=== PATIENT | male | born 1950 | race African-American/Black ===

== ENCOUNTER 2016-08-22 05:43 | Emergency (ER) | payer MEDICARE, MEDICAID ==
[~2016-08-22] VITALS: Ht 182.9 cm; Wt 72.0 kg
[~2016-08-22 05:43] MED LIST: ALBUTEROL; DILT120C88 PO; Metoprolol Tartrate PO; P50 PO; RIVA20TA PO
[2016-08-22 05:47] VITALS: BP 133/84
[2016-08-22] MEDS ORDERED: SODIUM CHLORIDE 0.9% 1,000 ML IV ONE (06:16)
[2016-08-22] MEDS ORDERED: METHYLPREDNISOLONE SOD SUCC 125 MG/2 ML VIAL IV STA (06:16)
[2016-08-22] MEDS ORDERED: IPRATROPIUM/ALBUTEROL 0.5-3(2.5)MG/3ML NEB HHN ONE (06:30)
[2016-08-22] MEDS ORDERED: ASPIRIN 81MG TABLET PO ONE (06:30)
== END 2016-08-22 07:21 | disposition left against medical advice (07) ==
LOC: ER 06:30
DX: R06.02 Shortness of breath (principal); J45.909 Unspecified asthma, uncomplicated; I10 Essential (primary) hypertension; Z79.899 Other long term (current) drug therapy
CPT/HCPCS: 71010; 93005; 99284; J7030; J7620

== ENCOUNTER 2016-12-09 02:17 | Emergency (ER) | payer MEDICARE, MEDICAID ==
[~2016-12-09] VITALS: Ht 182.9 cm; Wt 91.0 kg
[2016-12-09] MEDS ORDERED: ALBUTEROL (0.083%) 2.5MG/3ML NEB HHN STA (02:31)
[2016-12-09] MEDS ORDERED: KETOROLAC 30MG/ML VIAL IV STA (02:31)
[2016-12-09] MEDS ORDERED: IPRATROPIUM BROMIDE (0.02%) 0.5MG/2.5ML NEB HHN STA (02:31)
[2016-12-09] MEDS ORDERED: METHYLPREDNISOLONE SOD SUCC 125 MG/2 ML VIAL IV STA (02:31)
[2016-12-09] MEDS ORDERED: ASPIRIN 81MG TABLET PO ONE (02:45)
[2016-12-09] MEDS ORDERED: CEFTRIAXONE 1 G PREMIX 50 ML IV ONE (02:45)
[2016-12-09] MEDS ORDERED: AZITHROMYCIN 500 MG in DEXT 5% WATER 250 ML IV ONE (02:45)
[2016-12-09] MEDS ORDERED: MAGNESIUM 2 G PREMIX 50 ML IV ONE (02:45)
[2016-12-09] MEDS ORDERED: NITROGLYCERIN OINT 1GM/INCH UDPKT TD ONE (02:45)
[2016-12-09 02:54] LABS: BG BASE EXCESS 5.2 mmol/L (-2.0-2.0); BG BILEVEL POS AIRWAY PRESSURE 15/5; BG CARBOXYHEMOGLOBIN 2.3 % (0.5-1.5); BG DEOXYHEMOGLOBIN 1.4 % (0.0-5.0); BG FRACTION INSPIRED OXYGEN 40; BG HCO3 ACT 32.7 mmol/L (22.0-26.0); BG METHEMOGLOBIN 0.4 % (0.0-1.5); BG OXYGEN SATURATION 98.6 % (92.0-98.5); BG OXYHEMOGLOBIN 95.9 % (94.0-97.0); BG PCO2 61.2 mmHg (35.0-45.0); BG PH 7.346 (7.350-7.450); BG PO2 140.8 mmHg (75.0-100.0); BG SAMPLE SITE RIGHT RADIAL; BG TOTAL HEMOGLOBIN 13.8 g/dL (12.0-18.0); BG VENT MODE MASK - BIPAP
[2016-12-09 03:02] LABS: HEMATOCRIT. 39.7 % (42.0-52.0); MEAN CORPUSCULAR HEMOGLOBIN 29.1 pg (28.0-32.0); MEAN CORPUSCULAR VOLUME 88.9 fL (80.0-94.0); MEAN PLATELET VOLUME 8.5 fl (7.4-10.4); PLATELET 171 x1000/uL (130-400); RED BLOOD CELL COUNT 4.46 mill/uL (4.7-6.1); RED CELL DISTRIBUTION WIDTH 14.8 % (11.6-14.6)
[2016-12-09 03:03] LABS: INR 1.1; PROTHROMBIN TIME 11.7 sec (9.4-11.6)
[2016-12-09 03:13] LABS: CARBON DIOXIDE 34 mEq/L (21-32); CHLORIDE 98 mEq/L (98-107)
[2016-12-09 03:14] LABS: ETHANOL BLOOD < 10 mg/dL; TROPONIN I 0.05 ng/mL (0.00-0.04)
[2016-12-09 03:58] LABS: CLARITY URINE CLEAR (CLEAR); COLOR URINE YELLOW (YELLOW); GLUCOSE URINE NEGATIVE (NEGATIVE); KETONES URINE NEGATIVE (NEGATIVE); LEUKOCYTE ESTERASE URINE NEGATIVE (NEGATIVE); NITRITE URINE NEGATIVE (NEGATIVE); OCCULT BLOOD URINE NEGATIVE (NEGATIVE); PH URINE 5.5 (4.5-8.0); PROTEIN URINE TRACE (NEGATIVE); SPECIFIC GRAVITY URINE 1.019 (1.005-1.030)
[2016-12-09 04:10] LABS: *AMPHETAMINES SCREEN URINE NEGATIVE (NEGATIVE); *BARBITURATES SCREEN URINE NEGATIVE (NEGATIVE); *BENZODIAZEPINES SCREEN URINE NEGATIVE (NEGATIVE); *COCAINE SCREEN URINE NEGATIVE (NEGATIVE); CANNABINOID URINE SCREEN PRESUMTIVE POSITIVE (NEGATIVE); METHADONE URINE SCREEN NEGATIVE (NEGATIVE); OPIATES URINE SCREEN PRESUMTIVE POSITIVE (NEGATIVE); PHENCYCLIDINE URINE SCREEN NEGATIVE (NEGATIVE)
[2016-12-09 06:10] VITALS: BP 125/76
[2016-12-09 07:39] LABS: PLATELET ESTIMATE NORMAL
== END 2016-12-09 06:10 | disposition home or self-care (01) ==
LOC: ER 02:17
DX: J44.1 Chronic obstructive pulmonary disease with (acute) exacerbation (principal); R06.89 Other abnormalities of breathing; I50.9 Heart failure, unspecified; I48.91 Unspecified atrial fibrillation; R00.0 Tachycardia, unspecified; Z79.01 Long term (current) use of anticoagulants
CPT/HCPCS: 36415; 36600; 71010; 80053; 80305; 81001; 82375; 82805; 83605; 83690; 83880; 84484; 85025; 85610; 87040; 87086; 93005; 94640; 94660; 96365; 96366; 96368; 96375; 99285; G0482; J0456; J0696; J1885; J2930; J3475; J7611; J7060

== ENCOUNTER 2017-01-26 02:41 | Inpatient (IN) | payer MEDICARE, MEDICAID ==
[~2017-01-26] VITALS: Ht 175.3 cm; Wt 86.6 kg
[2017-01-26] MEDS ORDERED: ALBUTEROL (0.083%) 2.5MG/3ML NEB HHN STA (02:59)
[2017-01-26] MEDS ORDERED: IPRATROPIUM BROMIDE (0.02%) 0.5MG/2.5ML NEB HHN STA (02:59)
[2017-01-26] MEDS ORDERED: METHYLPREDNISOLONE SOD SUCC 125 MG/2 ML VIAL IV STA (02:59)
[2017-01-26] MEDS ORDERED: SODIUM CHLORIDE 0.9% 1,000 ML IV ONE (02:59)
[2017-01-26] MEDS ORDERED: LEVOFLOXACIN 250MG TABLET PO ONE (03:00)
[2017-01-26] MEDS ORDERED: MAGNESIUM 2 G PREMIX 50 ML IV ONE (03:00)
[2017-01-26] MEDS ORDERED: ASPIRIN 81MG TABLET PO ONE (03:00)
[2017-01-26] MEDS ORDERED: NITROGLYCERIN OINT 1GM/INCH UDPKT TD ONE (03:00)
[2017-01-26 04:03] LABS: BASOPHILS % 0.3 % (0.0-2.0); EOSINOPHILS % 0.7 % (0.0-5.0); HEMATOCRIT. 37.6 % (42.0-52.0); HEMOGLOBIN. 12.1 g/dL (14.0-18.0); LYMPHOCYTES % 30.3 % (20.0-50.0); MEAN CORPUSCULAR HEMOGLOBIN 29.5 pg (28.0-32.0); MEAN CORPUSCULAR VOLUME 91.3 fL (80.0-94.0); MEAN PLATELET VOLUME 9.1 fl (7.4-10.4); NEUTROPHILS % 59.7 % (40.0-76.0); PLATELET 127 x1000/uL (130-400); RED BLOOD CELL COUNT 4.12 mill/uL (4.7-6.1); RED CELL DISTRIBUTION WIDTH 15.4 % (11.6-14.6)
[2017-01-26 04:06] LABS: BG BASE EXCESS 5.1 mmol/L (-2.0-2.0); BG CARBOXYHEMOGLOBIN 2.5 % (0.5-1.5); BG DEOXYHEMOGLOBIN 3.5 % (0.0-5.0); BG FRACTION INSPIRED OXYGEN 28; BG HCO3 ACT 33.8 mmol/L (22.0-26.0); BG METHEMOGLOBIN 0.4 % (0.0-1.5); BG OXYGEN SATURATION 96.4 % (92.0-98.5); BG OXYHEMOGLOBIN 93.6 % (94.0-97.0); BG PCO2 70.2 mmHg (35.0-45.0); BG PO2 90.9 mmHg (75.0-100.0); BG SAMPLE SITE RIGHT RADIAL; BG TOTAL HEMOGLOBIN 13.4 g/dL (12.0-18.0); BG VENT MODE NASAL CANNULA
[2017-01-26 04:18] LABS: D-DIMER 3.17 mg/L FEU (<0.50); INR 1.2; PARTIAL THROMBOPLASTIN TIME 24.1 sec (23.4-31.0); PROTHROMBIN TIME 12.7 sec (9.4-11.6)
[2017-01-26 04:24] LABS: CARBON DIOXIDE 33 mEq/L (21-32); CHLORIDE 103 mEq/L (98-107); ETHANOL BLOOD < 10 mg/dL; TROPONIN I 0.06 ng/mL (0.00-0.04)
[2017-01-26] MEDS ORDERED: SODIUM CHLORIDE 0.9% 1,000 ML IV NR (05:45)
[2017-01-26 06:04] LABS: CLARITY URINE CLEAR (CLEAR); COLOR URINE YELLOW (YELLOW); GLUCOSE URINE NEGATIVE (NEGATIVE); KETONES URINE NEGATIVE (NEGATIVE); LEUKOCYTE ESTERASE URINE NEGATIVE (NEGATIVE); NITRITE URINE NEGATIVE (NEGATIVE); OCCULT BLOOD URINE NEGATIVE (NEGATIVE); PROTEIN URINE 2+ (NEGATIVE); SPECIFIC GRAVITY URINE 1.025 (1.005-1.030); UROBILINOGEN URINE 0.2 E.U./dL (0.2-1.0)
[2017-01-26 06:20] LABS: *AMPHETAMINES SCREEN URINE NEGATIVE (NEGATIVE); *BARBITURATES SCREEN URINE NEGATIVE (NEGATIVE); *BENZODIAZEPINES SCREEN URINE NEGATIVE (NEGATIVE); *COCAINE SCREEN URINE NEGATIVE (NEGATIVE); CANNABINOID URINE SCREEN PRESUMTIVE POSITIVE (NEGATIVE); METHADONE URINE SCREEN NEGATIVE (NEGATIVE); OPIATES URINE SCREEN PRESUMTIVE POSITIVE (NEGATIVE); PHENCYCLIDINE URINE SCREEN NEGATIVE (NEGATIVE)
[2017-01-26] MEDS ORDERED: IOHEXOL-350 100 ML BOTTLE ONE (06:42)
[2017-01-26 09:02] VITALS: BP 131/96
[2017-01-26 09:13] VITALS: BP 131/96
[2017-01-26] MEDS ORDERED: ACETAMINOPHEN 650MG/20.3ML UDC GT PRN (10:45)
[2017-01-26] MEDS ORDERED: CLONIDINE 0.1MG TABLET PO PRN (10:45)
[2017-01-26] MEDS ORDERED: ONDANSETRON HCL 4MG/2ML VIAL IV PRN (10:45)
[2017-01-26] MEDS ORDERED: ACETAMINOPHEN 325MG TABLET PO PRN (10:45)
[2017-01-26] MEDS ORDERED: DIPHENHYDRAMINE 50MG/ML VIAL IV PRN (10:45)
[2017-01-26] MEDS ORDERED: HYDROCODONE/ACETAMINOPHEN 5/325MG TABLET PO PRN (10:45)
[2017-01-26] MEDS ORDERED: ACETAMINOPHEN 650MG SUPP PR PRN (10:45)
[2017-01-26] MEDS ORDERED: NA PHOS,M-B/NA PHOS,DI-BA ENEMA 118ML PR PRN (10:45)
[2017-01-26] MEDS ORDERED: IPRATROPIUM/ALBUTEROL 0.5-3(2.5)MG/3ML NEB INH PRN (10:45)
[2017-01-26] MEDS ORDERED: DOCUSATE SODIUM 100MG CAPSULE PO PRN (10:45)
[2017-01-26] MEDS ORDERED: GUAIFENESIN 200MG/10ML SUGAR FREE UDC PO PRN (10:45)
[2017-01-26] MEDS ORDERED: MAGNESIUM/ALUMINUM HYDROXIDE/SIMETHICONE 30ML UDC PO PRN (10:45)
[2017-01-26] MEDS: METHYLPREDNISOLONE SOD SUCC 125 MG/2 ML VIAL IV SCH ×3 (11:18→23:32)
[2017-01-26 12:00] VITALS: BP 123/90
[2017-01-26] MEDS: IPRATROPIUM/ALBUTEROL 0.5-3(2.5)MG/3ML NEB INH SCH ×2 (13:08→21:15)
[2017-01-26] MEDS: SODIUM CHLORIDE 0.9% INJ 3ML FLUSH IVF SCH ×2 (14:26→21:27)
[2017-01-26 14:54] LABS: CARBON DIOXIDE 31 mEq/L (21-32); CHLORIDE 102 mEq/L (98-107)
[2017-01-26] MEDS ORDERED: APIXABAN 5 MG TABLET PO SCH (15:00)
[2017-01-26] MEDS: HYDROCODONE/ACETAMINOPHEN 10/325MG TABLET PO PRN ×2 (15:07→23:33)
[2017-01-26 16:00] VITALS: BP 133/89
[2017-01-26] MEDS ORDERED: DILTIAZEM HCL 120MG CAPSULE CD 24HR PO SCH (19:00)
[2017-01-26 20:00] VITALS: BP 121/81
[2017-01-26] MEDS ORDERED: APIX5TAB PO ×2 (20:47→21:00)
[2017-01-26] MEDS ORDERED: P20 PO (20:57)
[2017-01-26] MEDS ORDERED: LISI10TA5 PO (20:58)
[2017-01-26] MEDS ORDERED: FOLI-43 PO (20:58)
[2017-01-26] MEDS ORDERED: METO25TA6 PO (20:59)
[2017-01-27] VITALS: BP 119/91
[2017-01-27] MEDS ORDERED: METHYLPREDNISOLONE SOD SUCC 125 MG/2 ML VIAL IV SCH (00:10)
[2017-01-27 04:00] VITALS: BP 120/81
[2017-01-27] MEDS: METHYLPREDNISOLONE SOD SUCC 125 MG/2 ML VIAL IV SCH ×2 (06:14→12:20)
[2017-01-27] MEDS: SODIUM CHLORIDE 0.9% INJ 3ML FLUSH IVF SCH (06:15)
[2017-01-27 07:42] LABS: HEMATOCRIT. 37.4 % (42.0-52.0); HEMOGLOBIN. 12.2 g/dL (14.0-18.0); MEAN CORPUSCULAR HEMOGLOBIN 29.5 pg (28.0-32.0); MEAN CORPUSCULAR VOLUME 90.9 fL (80.0-94.0); MEAN PLATELET VOLUME 10.1 fl (7.4-10.4); PLATELET 135 x1000/uL (130-400); RED BLOOD CELL COUNT 4.11 mill/uL (4.7-6.1); RED CELL DISTRIBUTION WIDTH 15.6 % (11.6-14.6)
[2017-01-27 07:55] VITALS: BP 125/85
[2017-01-27] MEDS: HYDROCODONE/ACETAMINOPHEN 10/325MG TABLET PO PRN (08:08)
[2017-01-27] MEDS: IPRATROPIUM/ALBUTEROL 0.5-3(2.5)MG/3ML NEB INH SCH ×2 (08:33→12:23)
[2017-01-27 08:56] LABS: CARBON DIOXIDE 33 mEq/L (21-32); CHLORIDE 101 mEq/L (98-107); HDL CHOLESTEROL 49 mg/dL (40-59); LDL CHOLESTEROL 93 mg/dL (5-100)
[2017-01-27] MEDS ORDERED: FOLIC ACID 1MG TABLET PO SCH (09:00)
[2017-01-27] MEDS ORDERED: APIXABAN 5 MG TABLET PO SCH ×2 (09:00)
[2017-01-27] MEDS ORDERED: METOPROLOL TARTRATE 25MG TABLET PO SCH (09:00)
[2017-01-27] MEDS ORDERED: LISINOPRIL 10MG TABLET PO SCH (09:00)
[2017-01-27 10:55] LABS: PLATELET ESTIMATE NORMAL
[2017-01-27] MEDS ORDERED: MAGNESIUM CITRATE 300ML SOLUTION PO NR (11:15)
[2017-01-27] MEDS ORDERED: APIX5TAB PO (11:17)
[2017-01-27 12:00] VITALS: BP 121/78
[2017-01-27 13:19] VITALS: BP 121/78
[2017-01-27] MEDS ORDERED: RIVAROXABAN 20 MG TABLET PO SCH (17:00)
[2017-01-28] MEDS ORDERED: FURO20TA4 PO (23:36)
[2017-01-28] MEDS ORDERED: APIX5TAB PO (23:36)
[2017-01-28] MEDS ORDERED: P20 PO (23:36)
[2017-01-28] MEDS ORDERED: METO-396 PO (23:36)
== END 2017-01-27 13:35 | disposition home or self-care (01) | DRG 189 ==
LOC: ER 02:41 → 6WST 03:54 → ENRESERV 06:15 → CANBEDREQ 08:39
PROVIDERS: ADMIT Family Medicine; ATTEND Family Medicine
PROC: 5A09357 Assistance with Respiratory Ventilation, Less than 24 Consecutive Hours, Continuous Positive Airway Pressure (ICD-10-PCS; principal; 2017-01-26)
DX: J96.00 Acute respiratory failure, unspecified whether with hypoxia or hypercapnia (principal); I48.91 Unspecified atrial fibrillation; J44.1 Chronic obstructive pulmonary disease with (acute) exacerbation; E11.9 Type 2 diabetes mellitus without complications; D64.9 Anemia, unspecified; E78.5 Hyperlipidemia, unspecified; I48.92 Unspecified atrial flutter; I10 Essential (primary) hypertension; R91.1 Solitary pulmonary nodule; Z79.899 Other long term (current) drug therapy
CPT/HCPCS: 36415; 36600; 71010; 71275; 80048; 80053; 80061; 80305; 81001; 82375; 82805; 83605; 83690; 83880; 84484; 85025; 85379; 85610; 85730; 87040; 93005; 93970; 94640; 94660; 94664; 96374; 99285; G0482; J2930; J3475; J7030; J7611; J7620; Q9967

== ENCOUNTER 2017-01-28 05:04 | Inpatient (IN) | payer MEDICARE, MEDICAID ==
[2017-01-28] VITALS (21 sets, daily range): BP systolic 110–129; BP diastolic 69–97
[~2017-01-28] VITALS: Ht 182.9 cm; Wt 91.2 kg
[~2017-01-28 05:04] MED LIST changes: +APIX5TAB PO; +FOLI-43 PO; +LISI10TA5 PO; +METO25TA6 PO; -RIVA20TA PO
[2017-01-28] MEDS ORDERED: IPRATROPIUM BROMIDE (0.02%) 0.5MG/2.5ML NEB HHN STA (05:09)
[2017-01-28] MEDS ORDERED: METHYLPREDNISOLONE SOD SUCC 125 MG/2 ML VIAL IV STA (05:09)
[2017-01-28] MEDS ORDERED: ALBUTEROL (0.083%) 2.5MG/3ML NEB HHN STA (05:09)
[2017-01-28] MEDS ORDERED: PROPOFOL 10MG/ML 100ML 100 ML IV ONE ×4 (05:15→10:30)
[2017-01-28] MEDS ORDERED: SUCCINYLCHOLINE CHLORIDE 200MG/10ML VIAL IV ONE ×2 (05:15→06:00)
[2017-01-28] MEDS ORDERED: ETOMIDATE 2MG/ML 10ML VIAL IV ONE ×2 (05:15→06:00)
[2017-01-28] MEDS ORDERED: MAGNESIUM 2 G PREMIX 50 ML IV ONE (05:15)
[2017-01-28] MEDS ORDERED: SODIUM CHLORIDE 0.9% 1,000 ML IV SCH (05:41)
[2017-01-28 05:56] LABS: BASOPHILS % 0.3 % (0.0-2.0); HEMATOCRIT. 37.9 % (42.0-52.0); HEMOGLOBIN. 12.3 g/dL (14.0-18.0); LYMPHOCYTES % 16.1 % (20.0-50.0); MEAN CORPUSCULAR HEMOGLOBIN 29.5 pg (28.0-32.0); MEAN CORPUSCULAR VOLUME 90.6 fL (80.0-94.0); MONOCYTES % 4.7 % (2.0-8.0); NEUTROPHILS % 78.9 % (40.0-76.0); PLATELET 128 x1000/uL (130-400); RED BLOOD CELL COUNT 4.19 mill/uL (4.7-6.1); RED CELL DISTRIBUTION WIDTH 15.5 % (11.6-14.6)
[2017-01-28 06:07] LABS: INR 1.3; PROTHROMBIN TIME 13.1 sec (9.4-11.6)
[2017-01-28 06:13] LABS: CARBON DIOXIDE 33 mEq/L (21-32); CHLORIDE 102 mEq/L (98-107); TROPONIN I 0.08 ng/mL (0.00-0.04)
[2017-01-28] MEDS ORDERED: LORAZEPAM 2MG/ML CPJ ONE (07:51)
[2017-01-28 07:53] LABS: BG BASE EXCESS 4.2 mmol/L (-2.0-2.0); BG CARBOXYHEMOGLOBIN 1.2 % (0.5-1.5); BG DEOXYHEMOGLOBIN 0.6 % (0.0-5.0); BG FRACTION INSPIRED OXYGEN 50; BG HCO3 ACT 29.6 mmol/L (22.0-26.0); BG METHEMOGLOBIN 0.3 % (0.0-1.5); BG OXYGEN SATURATION 99.4 % (92.0-98.5); BG OXYHEMOGLOBIN 97.9 % (94.0-97.0); BG PCO2 47.5 mmHg (35.0-45.0); BG PH 7.413 (7.350-7.450); BG PO2 203.4 mmHg (75.0-100.0); BG SAMPLE SITE LEFT RADIAL; BG TIDAL VOLUME(mL) 600 mL; BG TOTAL HEMOGLOBIN 12.9 g/dL (12.0-18.0); BG VENT MODE VENT - A/C; BG VENT RATE 16 set
[2017-01-28] MEDS ORDERED: LORAZEPAM 2MG/ML CPJ IV PRN (08:15)
[2017-01-28] MEDS ORDERED: ENOXAPARIN 40MG/0.4ML SYR SUBCUT SCH (14:15)
[2017-01-28] MEDS: PROPOFOL 10MG/ML 100ML 100 ML IV PRN ×2 (17:00→21:24)
[2017-01-28] MEDS: DEXT 5%/0.45% NACL 1000ML 1,000 ML IV SCH (22:08)
[2017-01-28] MEDS: METHYLPREDNISOLONE SOD SUCC 125 MG/2 ML VIAL IV SCH (22:15)
[2017-01-28] MEDS: LEVOFLOXACIN 500MG PREMIX 100 ML IV SCH (22:17)
[2017-01-28] MEDS: ENOXAPARIN 30MG/0.3ML SYR SUBCUT SCH (22:17)
[2017-01-28 22:47] LABS: CLARITY URINE TURBID (CLEAR); COLOR URINE YELLOW (YELLOW); GLUCOSE URINE NEGATIVE (NEGATIVE); KETONES URINE NEGATIVE (NEGATIVE); LEUKOCYTE ESTERASE URINE TRACE (NEGATIVE); NITRITE URINE NEGATIVE (NEGATIVE); OCCULT BLOOD URINE 3+ (NEGATIVE); PH URINE 5.5 (4.5-8.0); PROTEIN URINE 1+ (NEGATIVE); SPECIFIC GRAVITY URINE 1.028 (1.005-1.030); UROBILINOGEN URINE 0.2 E.U./dL (0.2-1.0)
[2017-01-28 23:07] LABS: *AMPHETAMINES SCREEN URINE NEGATIVE (NEGATIVE); *BARBITURATES SCREEN URINE NEGATIVE (NEGATIVE); *BENZODIAZEPINES SCREEN URINE NEGATIVE (NEGATIVE); *COCAINE SCREEN URINE NEGATIVE (NEGATIVE); CANNABINOID URINE SCREEN PRESUMTIVE POSITIVE (NEGATIVE); METHADONE URINE SCREEN NEGATIVE (NEGATIVE); OPIATES URINE SCREEN PRESUMTIVE POSITIVE (NEGATIVE); PHENCYCLIDINE URINE SCREEN NEGATIVE (NEGATIVE)
[2017-01-28] MEDS ORDERED: FURO20TA4 PO (23:36)
[2017-01-28] MEDS ORDERED: APIX5TAB PO (23:36)
[2017-01-28] MEDS ORDERED: P20 PO (23:36)
[2017-01-28] MEDS ORDERED: METO-396 PO (23:36)
[2017-01-29] VITALS (88 sets, daily range): BP systolic 114–169; BP diastolic 70–129
[2017-01-29] MEDS: PROPOFOL 10MG/ML 100ML 100 ML IV PRN ×5 (01:54→20:56)
[2017-01-29] MEDS: METHYLPREDNISOLONE SOD SUCC 125 MG/2 ML VIAL IV SCH ×3 (05:05→22:38)
[2017-01-29 06:10] LABS: BASOPHILS % 0.4 % (0.0-2.0); HEMATOCRIT. 40.6 % (42.0-52.0); HEMOGLOBIN. 13.1 g/dL (14.0-18.0); LYMPHOCYTES % 11.7 % (20.0-50.0); MEAN CORPUSCULAR HEMOGLOBIN 29.6 pg (28.0-32.0); MEAN CORPUSCULAR VOLUME 91.6 fL (80.0-94.0); MEAN PLATELET VOLUME 9.8 fl (7.4-10.4); MONOCYTES % 7.3 % (2.0-8.0); NEUTROPHILS % 80.6 % (40.0-76.0); PLATELET 124 x1000/uL (130-400); RED BLOOD CELL COUNT 4.44 mill/uL (4.7-6.1); RED CELL DISTRIBUTION WIDTH 15.6 % (11.6-14.6)
[2017-01-29 06:40] LABS: CHLORIDE 101 mEq/L (98-107)
[2017-01-29 06:46] LABS: CARBON DIOXIDE 29 mEq/L (21-32)
[2017-01-29] MEDS: ENOXAPARIN 30MG/0.3ML SYR SUBCUT SCH (08:24)
[2017-01-29] MEDS: IPRATROPIUM/ALBUTEROL 0.5-3(2.5)MG/3ML NEB INH PRN ×3 (08:49→15:54)
[2017-01-29] MEDS: BUDESONIDE 0.5MG/2ML NEB HHN SCH ×2 (08:49→20:34)
[2017-01-29 09:22] LABS: BG BASE EXCESS 4.5 mmol/L (-2.0-2.0); BG DEOXYHEMOGLOBIN 2.8 % (0.0-5.0); BG FRACTION INSPIRED OXYGEN 40; BG HCO3 ACT 30.2 mmol/L (22.0-26.0); BG OXYGEN SATURATION 97.2 % (92.0-98.5); BG OXYHEMOGLOBIN 97.2 % (94.0-97.0); BG PCO2 48.9 mmHg (35.0-45.0); BG PH 7.408 (7.350-7.450); BG SAMPLE SITE RIGHT RADIAL; BG TIDAL VOLUME(mL) 600 mL; BG TOTAL HEMOGLOBIN 14.2 g/dL (12.0-18.0); BG VENT MODE VENT - A/C
[2017-01-29 11:31] LABS: BG VENT RATE 16 set
[2017-01-29] MEDS: DEXT 5%/0.45% NACL 1000ML 1,000 ML IV SCH (11:46)
[2017-01-29 12:22] LABS: CARCINO EMBRYONIC ANTIGEN 0.5 ng/ml
[2017-01-29 12:33] LABS: HEPATITIS B SURFACE ANTIGEN NEGATIVE
[2017-01-29 13:01] LABS: HEPATITIS B CORE AB IGM NEGATIVE
[2017-01-29 13:02] LABS: HEPATITIS A AB IGM NEGATIVE (NEGATIVE)
[2017-01-29 13:13] LABS: PROSTRATE SPECIFIC AG TOTAL 2.82 ng/mL (0.0-4.0)
[2017-01-29] MEDS: MORPHINE SULFATE 4 MG/ML CPJ (NOT FOR IM USE) IV PRN ×2 (13:53→21:24)
[2017-01-29] MEDS: LEVOFLOXACIN 500MG PREMIX 100 ML IV SCH (21:00)
[2017-01-30] VITALS (79 sets, daily range): BP systolic 106–211; BP diastolic 43–139
[2017-01-30] MEDS: PROPOFOL 10MG/ML 100ML 100 ML IV PRN ×2 (00:33→04:17)
[2017-01-30] MEDS: DEXT 5%/0.45% NACL 1000ML 1,000 ML IV SCH ×2 (00:36→14:40)
[2017-01-30] MEDS: METHYLPREDNISOLONE SOD SUCC 125 MG/2 ML VIAL IV SCH (06:05)
[2017-01-30] MEDS: BUDESONIDE 0.5MG/2ML NEB HHN SCH (08:27)
[2017-01-30] MEDS: IPRATROPIUM/ALBUTEROL 0.5-3(2.5)MG/3ML NEB INH PRN (08:28)
[2017-01-30] MEDS ORDERED: FLUCONAZOLE 100MG/50ML PREMIX IV ONE (09:30)
[2017-01-30] MEDS: ENOXAPARIN 40MG/0.4ML SYR SUBCUT SCH (09:30)
[2017-01-30] MEDS ORDERED: LORAZEPAM 2MG/ML CPJ IV PRN (09:41)
[2017-01-30] MEDS ORDERED: MIDAZOLAM HCL 50 MG in DEXTROSE 5% WATER 40 ML IV PRN (10:00)
[2017-01-30 10:04] LABS: HEMATOCRIT. 44.4 % (42.0-52.0); HEMOGLOBIN. 14.3 g/dL (14.0-18.0); MEAN CORPUSCULAR HEMOGLOBIN 29.5 pg (28.0-32.0); MEAN CORPUSCULAR VOLUME 91.6 fL (80.0-94.0); MEAN PLATELET VOLUME 10.3 fl (7.4-10.4); PLATELET 123 x1000/uL (130-400); RED BLOOD CELL COUNT 4.84 mill/uL (4.7-6.1); RED CELL DISTRIBUTION WIDTH 15.6 % (11.6-14.6)
[2017-01-30 10:12] LABS: BG BASE EXCESS 4.5 mmol/L (-2.0-2.0); BG CARBOXYHEMOGLOBIN 0.8 % (0.5-1.5); BG DEOXYHEMOGLOBIN 9.5 % (0.0-5.0); BG FRACTION INSPIRED OXYGEN 40; BG HCO3 ACT 31.3 mmol/L (22.0-26.0); BG METHEMOGLOBIN 0.4 % (0.0-1.5); BG OXYGEN SATURATION 90.4 % (92.0-98.5); BG OXYHEMOGLOBIN 89.3 % (94.0-97.0); BG PH 7.381 (7.350-7.450); BG PO2 59.8 mmHg (75.0-100.0); BG SAMPLE SITE RIGHT RADIAL; BG TIDAL VOLUME(mL) 550 mL; BG TOTAL HEMOGLOBIN 16.7 g/dL (12.0-18.0); BG VENT MODE VENT - A/C; BG VENT RATE 14 set
[2017-01-30 10:14] LABS: CARBON DIOXIDE 29 mEq/L (21-32); CHLORIDE 101 mEq/L (98-107)
[2017-01-30] MEDS: AMLODIPINE 10MG TABLET PO SCH (10:17)
[2017-01-30] MEDS: HYDRALAZINE 20MG/ML VIAL IV PRN (10:17)
[2017-01-30] MEDS: PANTOPRAZOLE SODIUM 40 MG/VIAL IV SCH (10:17)
[2017-01-30] MEDS: FENTANYL CITRATE/PF 500 MCG in SODIUM CHLORIDE 0.9% 40 ML IV PRN ×3 (10:20→21:15)
[2017-01-30 11:17] LABS: PLATELET ESTIMATE SLIGHTLY DECREASED
[2017-01-30] MEDS ORDERED: FLUCONAZOLE 100 MG/50ML BAG 50 ML IV NR ×2 (11:30→16:00)
[2017-01-30] MEDS ORDERED: LORAZEPAM 2MG/ML CPJ IV NR (11:35)
[2017-01-30] MEDS: METHYLPREDNISOLONE SOD SUCC 40 MG/ML VIAL IV SCH ×2 (15:14→21:33)
[2017-01-30] MEDS: LORAZEPAM 2MG/ML CPJ IV PRN ×2 (15:54→21:54)
[2017-01-30] MEDS: CLONIDINE 0.1MG TABLET PO SCH ×2 (16:27→21:34)
[2017-01-30] MEDS: LEVOFLOXACIN 500MG PREMIX 100 ML IV SCH (21:33)
[2017-01-31] VITALS (72 sets, daily range): BP systolic 117–158; BP diastolic 52–96
[2017-01-31] MEDS: FENTANYL CITRATE/PF 500 MCG in SODIUM CHLORIDE 0.9% 40 ML IV PRN ×3 (02:06→15:03)
[2017-01-31] MEDS: LORAZEPAM 2MG/ML CPJ IV PRN ×5 (03:28→23:59)
[2017-01-31] MEDS: MORPHINE SULFATE 4 MG/ML CPJ (NOT FOR IM USE) IV PRN ×2 (04:06→20:08)
[2017-01-31] MEDS: DEXT 5%/0.45% NACL 1000ML 1,000 ML IV SCH ×2 (04:08→17:10)
[2017-01-31 06:01] LABS: HEMATOCRIT. 43.7 % (42.0-52.0); HEMOGLOBIN. 14.2 g/dL (14.0-18.0); MEAN CORPUSCULAR HEMOGLOBIN 29.7 pg (28.0-32.0); MEAN CORPUSCULAR VOLUME 91.3 fL (80.0-94.0); PLATELET 117 x1000/uL (130-400); RED BLOOD CELL COUNT 4.78 mill/uL (4.7-6.1); RED CELL DISTRIBUTION WIDTH 15.5 % (11.6-14.6)
[2017-01-31] MEDS: METHYLPREDNISOLONE SOD SUCC 40 MG/ML VIAL IV SCH ×3 (06:03→21:07)
[2017-01-31] MEDS: CLONIDINE 0.1MG TABLET PO SCH ×3 (06:04→21:08)
[2017-01-31 06:31] LABS: CARBON DIOXIDE 33 mEq/L (21-32); CHLORIDE 99 mEq/L (98-107); TROPONIN I 0.03 ng/mL (0.00-0.04)
[2017-01-31] MEDS: BUDESONIDE 0.5MG/2ML NEB HHN SCH ×2 (08:14→20:06)
[2017-01-31] MEDS: IPRATROPIUM/ALBUTEROL 0.5-3(2.5)MG/3ML NEB INH PRN ×5 (08:15→23:58)
[2017-01-31 08:35] LABS: PLATELET ESTIMATE SLIGHTLY DECREASED
[2017-01-31] MEDS: PANTOPRAZOLE SODIUM 40 MG/VIAL IV SCH (09:19)
[2017-01-31] MEDS: ENOXAPARIN 40MG/0.4ML SYR SUBCUT SCH (09:19)
[2017-01-31] MEDS: AMLODIPINE 10MG TABLET PO SCH (09:34)
[2017-01-31] MEDS: FLUCONAZOLE 100 MG/50ML BAG 50 ML IV SCH (09:39)
[2017-01-31] MEDS: LEVOFLOXACIN 500MG PREMIX 100 ML IV SCH (20:14)
[2017-01-31] MEDS: DIPHENHYDRAMINE 50MG/ML VIAL IV PRN (21:05)
[2017-02-01] VITALS (95 sets, daily range): BP systolic 108–167; BP diastolic 64–138
[2017-02-01] MEDS: FENTANYL CITRATE/PF 500 MCG in SODIUM CHLORIDE 0.9% 40 ML IV PRN ×4 (00:21→19:43)
[2017-02-01] MEDS: DIPHENHYDRAMINE 50MG/ML VIAL IV PRN ×4 (02:27→21:49)
[2017-02-01] MEDS: MORPHINE SULFATE 4 MG/ML CPJ (NOT FOR IM USE) IV PRN ×4 (02:36→21:49)
[2017-02-01] MEDS: IPRATROPIUM/ALBUTEROL 0.5-3(2.5)MG/3ML NEB INH PRN ×2 (03:57→10:22)
[2017-02-01] MEDS: METHYLPREDNISOLONE SOD SUCC 40 MG/ML VIAL IV SCH ×3 (05:15→21:50)
[2017-02-01] MEDS: CLONIDINE 0.1MG TABLET PO SCH ×3 (05:15→21:50)
[2017-02-01] MEDS: DEXT 5%/0.45% NACL 1000ML 1,000 ML IV SCH ×2 (05:15→19:43)
[2017-02-01 06:28] LABS: CARBON DIOXIDE 25 mEq/L (21-32); CHLORIDE 100 mEq/L (98-107); TROPONIN I < 0.02 ng/mL (0.00-0.04)
[2017-02-01] MEDS: LORAZEPAM 2MG/ML CPJ IV PRN ×4 (06:47→21:49)
[2017-02-01 07:49] LABS: HEMATOCRIT. 41.8 % (42.0-52.0); HEMOGLOBIN. 13.7 g/dL (14.0-18.0); MEAN CORPUSCULAR HEMOGLOBIN 29.9 pg (28.0-32.0); MEAN CORPUSCULAR VOLUME 91.5 fL (80.0-94.0); MEAN PLATELET VOLUME 9.3 fl (7.4-10.4); PLATELET 110 x1000/uL (130-400); RED BLOOD CELL COUNT 4.57 mill/uL (4.7-6.1); RED CELL DISTRIBUTION WIDTH 15.1 % (11.6-14.6)
[2017-02-01] MEDS: PANTOPRAZOLE SODIUM 40 MG/VIAL IV SCH (09:18)
[2017-02-01] MEDS: ENOXAPARIN 40MG/0.4ML SYR SUBCUT SCH (09:18)
[2017-02-01] MEDS: AMLODIPINE 10MG TABLET PO SCH (09:18)
[2017-02-01] MEDS: FLUCONAZOLE 100 MG/50ML BAG 50 ML IV SCH (09:18)
[2017-02-01] MEDS ORDERED: RACEPINEPHRINE 2.25% 0.5ML NEB VIAL ONE (10:09)
[2017-02-01] MEDS ORDERED: RACEPINEPHRINE 2.25% 0.5ML NEB VIAL HHN PRN (10:15)
[2017-02-01] MEDS ORDERED: METHYLPREDNISOLONE SOD SUCC 40 MG/ML VIAL IV NR (10:15)
[2017-02-01 10:30] LABS: PLATELET ESTIMATE DECREASED
[2017-02-01] MEDS: BUDESONIDE 0.5MG/2ML NEB HHN SCH ×2 (10:43→19:56)
[2017-02-01] MEDS ORDERED: RACEPINEPHRINE 2.25% 0.5ML NEB VIAL HHN NR (11:15)
[2017-02-01] MEDS ORDERED: LIDOCAINE HCL 1% 20ML VIAL (Pyxis) INJ ONE (13:41)
[2017-02-01] MEDS ORDERED: SUCCINYLCHOLINE CHLORIDE 200MG/10ML VIAL IV ONE (13:50)
[2017-02-01] MEDS ORDERED: ETOMIDATE 2MG/ML 10ML VIAL IV ONE (13:50)
[2017-02-01 14:41] LABS: BG BASE EXCESS 6.8 mmol/L (-2.0-2.0); BG CARBOXYHEMOGLOBIN 0.1 % (0.5-1.5); BG DEOXYHEMOGLOBIN 1.6 % (0.0-5.0); BG FRACTION INSPIRED OXYGEN 60; BG HCO3 ACT 33.8 mmol/L (22.0-26.0); BG METHEMOGLOBIN 0.3 % (0.0-1.5); BG OXYGEN SATURATION 98.4 % (92.0-98.5); BG PCO2 58.6 mmHg (35.0-45.0); BG PH 7.379 (7.350-7.450); BG PO2 127.4 mmHg (75.0-100.0); BG SAMPLE SITE LEFT BRACHIAL; BG TIDAL VOLUME(mL) 550 mL; BG TOTAL HEMOGLOBIN 14.1 g/dL (12.0-18.0); BG VENT MODE VENT - A/C; BG VENT RATE 14 set
[2017-02-01] MEDS ORDERED: METHYLPREDNISOLONE SOD SUCC 40 MG/ML VIAL IV SCH (21:00)
[2017-02-01] MEDS: LEVOFLOXACIN 500MG PREMIX 100 ML IV SCH (21:51)
[2017-02-01] MEDS ORDERED: MIDAZOLAM HCL 100 MG in DEXT 5% WATER 80 ML IV PRN (22:30)
[2017-02-02] VITALS (94 sets, daily range): BP systolic 100–174; BP diastolic 25–122
[2017-02-02] MEDS: METHYLPREDNISOLONE SOD SUCC 125 MG/2 ML VIAL IV SCH ×3 (05:26→20:43)
[2017-02-02] MEDS: CLONIDINE 0.1MG TABLET PO SCH ×3 (05:26→21:25)
[2017-02-02 05:42] LABS: HEMATOCRIT. 40.5 % (42.0-52.0); HEMOGLOBIN. 13.2 g/dL (14.0-18.0); MEAN CORPUSCULAR HEMOGLOBIN 30.1 pg (28.0-32.0); MEAN CORPUSCULAR VOLUME 92.5 fL (80.0-94.0); MEAN PLATELET VOLUME 10.4 fl (7.4-10.4); PLATELET 99 x1000/uL (130-400); RED BLOOD CELL COUNT 4.38 mill/uL (4.7-6.1)
[2017-02-02 06:32] LABS: CARBON DIOXIDE 28 mEq/L (21-32); CHLORIDE 97 mEq/L (98-107)
[2017-02-02 06:38] LABS: TROPONIN I 0.03 ng/mL (0.00-0.04)
[2017-02-02] MEDS: FENTANYL CITRATE/PF 500 MCG in SODIUM CHLORIDE 0.9% 40 ML IV PRN ×5 (07:22→20:30)
[2017-02-02 07:49] LABS: BG BASE EXCESS 6.7 mmol/L (-2.0-2.0); BG CARBOXYHEMOGLOBIN 0.3 % (0.5-1.5); BG DEOXYHEMOGLOBIN 3.4 % (0.0-5.0); BG FRACTION INSPIRED OXYGEN 55; BG HCO3 ACT 32.6 mmol/L (22.0-26.0); BG METHEMOGLOBIN 1.1 % (0.0-1.5); BG OXYGEN SATURATION 96.6 % (92.0-98.5); BG OXYHEMOGLOBIN 95.2 % (94.0-97.0); BG PCO2 51.7 mmHg (35.0-45.0); BG PH 7.418 (7.350-7.450); BG PO2 92.2 mmHg (75.0-100.0); BG SAMPLE SITE RIGHT RADIAL; BG TIDAL VOLUME(mL) 550 mL; BG TOTAL HEMOGLOBIN 13.9 g/dL (12.0-18.0); BG VENT MODE VENT - A/C; BG VENT RATE 14 set
[2017-02-02] MEDS: IPRATROPIUM/ALBUTEROL 0.5-3(2.5)MG/3ML NEB INH PRN ×3 (08:36→16:42)
[2017-02-02] MEDS: BUDESONIDE 0.5MG/2ML NEB HHN SCH ×2 (08:36→20:22)
[2017-02-02] MEDS: ENOXAPARIN 40MG/0.4ML SYR SUBCUT SCH (08:53)
[2017-02-02] MEDS: AMLODIPINE 10MG TABLET PO SCH (08:54)
[2017-02-02] MEDS: FLUCONAZOLE 100 MG/50ML BAG 50 ML IV SCH (08:54)
[2017-02-02] MEDS: PANTOPRAZOLE SODIUM 40 MG/VIAL IV SCH (08:54)
[2017-02-02] MEDS: DEXT 5%/0.45% NACL 1000ML 1,000 ML IV SCH ×2 (08:54→20:30)
[2017-02-02 09:57] LABS: PLATELET ESTIMATE SLIGHTLY DECREASED
[2017-02-02] MEDS: HYDRALAZINE 20MG/ML VIAL IV PRN (10:54)
[2017-02-02] MEDS: MORPHINE SULFATE 2 MG/ML CPJ (NOT FOR IM USE) IV PRN ×4 (10:55→23:17)
[2017-02-02] MEDS: LORAZEPAM 2MG/ML CPJ IV PRN ×4 (10:56→22:34)
[2017-02-02] MEDS: LEVOFLOXACIN 500MG PREMIX 100 ML IV SCH (20:44)
[2017-02-02] MEDS: DIPHENHYDRAMINE 50MG/ML VIAL IV PRN (21:15)
[2017-02-02] MEDS ORDERED: DEXTROSE 50% WATER 50ML SYRINGE IV PRN (21:30)
[2017-02-03] VITALS (87 sets, daily range): BP systolic 104–157; BP diastolic 65–109
[2017-02-03] MEDS: BLOOD SUGAR DIAGNOSTIC STRIP TEST SCH ×4 (00:21→17:28)
[2017-02-03] MEDS: MORPHINE SULFATE 2 MG/ML CPJ (NOT FOR IM USE) IV PRN ×3 (03:31→19:42)
[2017-02-03] MEDS: LORAZEPAM 2MG/ML CPJ IV PRN ×3 (03:53→23:46)
[2017-02-03] MEDS: DIPHENHYDRAMINE 50MG/ML VIAL IV PRN (04:38)
[2017-02-03] MEDS: ONDANSETRON HCL 4MG/2ML VIAL IV PRN (04:38)
[2017-02-03] MEDS: FENTANYL CITRATE/PF 500 MCG in SODIUM CHLORIDE 0.9% 40 ML IV PRN (04:50)
[2017-02-03] MEDS: INSULIN LISPRO 100 UNITS/ML SUBCUT SCH ×4 (05:35→17:32)
[2017-02-03] MEDS: CLONIDINE 0.1MG TABLET PO SCH ×3 (05:39→21:50)
[2017-02-03] MEDS: METHYLPREDNISOLONE SOD SUCC 125 MG/2 ML VIAL IV SCH ×3 (05:39→21:50)
[2017-02-03] MEDS: IPRATROPIUM/ALBUTEROL 0.5-3(2.5)MG/3ML NEB INH PRN (07:09)
[2017-02-03] MEDS: BUDESONIDE 0.5MG/2ML NEB HHN SCH ×3 (07:09→23:00)
[2017-02-03] MEDS: FLUCONAZOLE 100 MG/50ML BAG 50 ML IV SCH (08:00)
[2017-02-03] MEDS: PANTOPRAZOLE SODIUM 40 MG/VIAL IV SCH (08:00)
[2017-02-03] MEDS: ENOXAPARIN 40MG/0.4ML SYR SUBCUT SCH (08:00)
[2017-02-03] MEDS: AMLODIPINE 10MG TABLET PO SCH (08:00)
[2017-02-03] MEDS ORDERED: DOCUSATE SODIUM 100MG CAPSULE PO SCH (09:15)
[2017-02-03] MEDS: DEXT 5%/0.45% NACL 1000ML 1,000 ML IV SCH (09:21)
[2017-02-03] MEDS: DOCUSATE SODIUM SUGAR FREE 100MG/10ML UDC NG SCH ×2 (09:23→17:30)
[2017-02-03] MEDS: LEVOFLOXACIN 500MG PREMIX 100 ML IV SCH (20:13)
[2017-02-04] VITALS (90 sets, daily range): BP systolic 111–194; BP diastolic 36–123
[2017-02-04] MEDS: BLOOD SUGAR DIAGNOSTIC STRIP TEST SCH ×5 (00:13→23:37)
[2017-02-04] MEDS: FENTANYL CITRATE/PF 500 MCG in SODIUM CHLORIDE 0.9% 40 ML IV PRN ×3 (02:14→21:27)
[2017-02-04] MEDS: CLONIDINE 0.1MG TABLET PO SCH ×3 (06:18→21:34)
[2017-02-04] MEDS: METHYLPREDNISOLONE SOD SUCC 125 MG/2 ML VIAL IV SCH ×3 (06:18→21:34)
[2017-02-04] MEDS: INSULIN LISPRO 100 UNITS/ML SUBCUT SCH ×5 (06:37→23:36)
[2017-02-04] MEDS: IPRATROPIUM/ALBUTEROL 0.5-3(2.5)MG/3ML NEB INH PRN ×2 (08:42→23:21)
[2017-02-04] MEDS: BUDESONIDE 0.5MG/2ML NEB HHN SCH (08:42)
[2017-02-04] MEDS: PANTOPRAZOLE SODIUM 40 MG/VIAL IV SCH (09:29)
[2017-02-04] MEDS: DOCUSATE SODIUM SUGAR FREE 100MG/10ML UDC NG SCH ×2 (09:29→17:30)
[2017-02-04] MEDS: FLUCONAZOLE 100 MG/50ML BAG 50 ML IV SCH (09:29)
[2017-02-04] MEDS: ENOXAPARIN 40MG/0.4ML SYR SUBCUT SCH (09:29)
[2017-02-04] MEDS: AMLODIPINE 10MG TABLET PO SCH (09:30)
[2017-02-04] MEDS: DEXT 5%/0.45% NACL 1000ML 1,000 ML IV SCH (09:33)
[2017-02-04 10:15] LABS: BG BASE EXCESS 7.5 mmol/L (-2.0-2.0); BG CARBOXYHEMOGLOBIN 0.9 % (0.5-1.5); BG FRACTION INSPIRED OXYGEN 40; BG HCO3 ACT 33.3 mmol/L (22.0-26.0); BG METHEMOGLOBIN 0.3 % (0.0-1.5); BG OXYHEMOGLOBIN 95.8 % (94.0-97.0); BG PCO2 51.2 mmHg (35.0-45.0); BG PH 7.431 (7.350-7.450); BG PO2 85.5 mmHg (75.0-100.0); BG SAMPLE SITE LEFT RADIAL; BG TIDAL VOLUME(mL) 550 mL; BG TOTAL HEMOGLOBIN 14.5 g/dL (12.0-18.0); BG VENT MODE VENT - A/C; BG VENT RATE 10 set
[2017-02-04] MEDS: MORPHINE SULFATE 2 MG/ML CPJ (NOT FOR IM USE) IV PRN (12:24)
[2017-02-04] MEDS ORDERED: LORAZEPAM 2MG/ML CPJ ONE (12:41)
[2017-02-04] MEDS ORDERED: LORAZEPAM 2MG/ML CPJ IV NR (12:45)
[2017-02-04] MEDS ORDERED: PIPERACILLIN/TAZ 3.375G PREMIX 50 ML IV SCH (14:00)
[2017-02-04] MEDS: ONDANSETRON HCL 4MG/2ML VIAL IV PRN (17:41)
[2017-02-04] MEDS: PIPERACILLIN/TAZ 3.375G PREMIX 50 ML IV SCH (21:37)
[2017-02-05] VITALS (52 sets, daily range): BP systolic 108–165; BP diastolic 47–106
[2017-02-05] MEDS: PIPERACILLIN/TAZ 3.375G PREMIX 50 ML IV SCH ×4 (03:39→21:08)
[2017-02-05] MEDS: MORPHINE SULFATE 2 MG/ML CPJ (NOT FOR IM USE) IV PRN (04:37)
[2017-02-05] MEDS: METHYLPREDNISOLONE SOD SUCC 125 MG/2 ML VIAL IV SCH ×3 (06:27→21:08)
[2017-02-05] MEDS: FENTANYL CITRATE/PF 500 MCG in SODIUM CHLORIDE 0.9% 40 ML IV PRN (06:27)
[2017-02-05] MEDS: CLONIDINE 0.1MG TABLET PO SCH ×3 (06:27→22:00)
[2017-02-05] MEDS: BLOOD SUGAR DIAGNOSTIC STRIP TEST SCH ×3 (06:28→17:47)
[2017-02-05] MEDS: INSULIN LISPRO 100 UNITS/ML SUBCUT SCH ×3 (06:41→17:47)
[2017-02-05 07:23] LABS: BG BASE EXCESS 10.3 mmol/L (-2.0-2.0); BG CARBOXYHEMOGLOBIN 0.5 % (0.5-1.5); BG DEOXYHEMOGLOBIN 3.4 % (0.0-5.0); BG HCO3 ACT 35.9 mmol/L (22.0-26.0); BG METHEMOGLOBIN 0.2 % (0.0-1.5); BG OXYGEN SATURATION 96.6 % (92.0-98.5); BG OXYHEMOGLOBIN 95.9 % (94.0-97.0); BG PCO2 51.6 mmHg (35.0-45.0); BG PO2 84.1 mmHg (75.0-100.0); BG SAMPLE SITE LEFT RADIAL; BG TIDAL VOLUME(mL) 550 mL; BG TOTAL HEMOGLOBIN 13.5 g/dL (12.0-18.0); BG VENT MODE VENT - A/C; BG VENT RATE 14 set
[2017-02-05] MEDS: AMLODIPINE 10MG TABLET PO SCH (08:21)
[2017-02-05] MEDS: PANTOPRAZOLE SODIUM 40 MG/VIAL IV SCH (08:21)
[2017-02-05] MEDS: DOCUSATE SODIUM SUGAR FREE 100MG/10ML UDC NG SCH ×2 (08:21→17:00)
[2017-02-05] MEDS: ENOXAPARIN 40MG/0.4ML SYR SUBCUT SCH (08:22)
[2017-02-05] MEDS: FLUCONAZOLE 100 MG/50ML BAG 50 ML IV SCH (08:22)
[2017-02-05 09:30] LABS: HEMOGLOBIN. 12.8 g/dL (14.0-18.0); MEAN CORPUSCULAR VOLUME 91.2 fL (80.0-94.0); MEAN PLATELET VOLUME 9.8 fl (7.4-10.4); PLATELET 85 x1000/uL (130-400); RED BLOOD CELL COUNT 4.28 mill/uL (4.7-6.1); RED CELL DISTRIBUTION WIDTH 14.8 % (11.6-14.6)
[2017-02-05 09:42] LABS: CHLORIDE 95 mEq/L (98-107)
[2017-02-05 09:51] LABS: CARBON DIOXIDE 36 mEq/L (21-32)
[2017-02-05] MEDS: LORAZEPAM 2MG/ML CPJ IV PRN ×2 (10:33)
[2017-02-05 12:53] LABS: BG BASE EXCESS 6.7 mmol/L (-2.0-2.0); BG CARBOXYHEMOGLOBIN 0.8 % (0.5-1.5); BG DEOXYHEMOGLOBIN 3.2 % (0.0-5.0); BG FRACTION INSPIRED OXYGEN 40; BG METHEMOGLOBIN 0.3 % (0.0-1.5); BG OXYGEN SATURATION 96.8 % (92.0-98.5); BG OXYHEMOGLOBIN 95.7 % (94.0-97.0); BG PCO2 53.3 mmHg (35.0-45.0); BG PH 7.409 (7.350-7.450); BG PRESSURE SUPPORT 8; BG SAMPLE SITE LEFT RADIAL; BG TOTAL HEMOGLOBIN 14.1 g/dL (12.0-18.0); BG VENT MODE VENT - CPAP
[2017-02-05] MEDS: IPRATROPIUM/ALBUTEROL 0.5-3(2.5)MG/3ML NEB INH PRN ×2 (13:08→20:07)
[2017-02-05] MEDS: DEXT 5%/0.45% NACL 1000ML 1,000 ML IV SCH (13:25)
[2017-02-05 14:22] LABS: PLATELET ESTIMATE DECREASED
[2017-02-06] VITALS (22 sets, daily range): BP systolic 117–169; BP diastolic 46–110
[2017-02-06] MEDS: PIPERACILLIN/TAZ 3.375G PREMIX 50 ML IV SCH ×4 (02:45→20:31)
[2017-02-06] MEDS: INSULIN LISPRO 100 UNITS/ML SUBCUT SCH ×5 (06:00→20:30)
[2017-02-06] MEDS: BLOOD SUGAR DIAGNOSTIC STRIP TEST SCH ×5 (06:04→20:30)
[2017-02-06] MEDS: CLONIDINE 0.1MG TABLET PO SCH ×3 (06:04→21:55)
[2017-02-06] MEDS: METHYLPREDNISOLONE SOD SUCC 125 MG/2 ML VIAL IV SCH (06:05)
[2017-02-06 07:22] LABS: CARBON DIOXIDE 39 mEq/L (21-32); CHLORIDE 91 mEq/L (98-107); HEMATOCRIT. 40.8 % (42.0-52.0); HEMOGLOBIN. 13.3 g/dL (14.0-18.0); MEAN CORPUSCULAR HEMOGLOBIN 29.5 pg (28.0-32.0); MEAN CORPUSCULAR VOLUME 90.6 fL (80.0-94.0); MEAN PLATELET VOLUME 9.3 fl (7.4-10.4); PLATELET 84 x1000/uL (130-400); RED CELL DISTRIBUTION WIDTH 14.7 % (11.6-14.6)
[2017-02-06] MEDS ORDERED: DEXTROSE 50% WATER 50ML SYRINGE IV PRN (07:30)
[2017-02-06] MEDS: AMLODIPINE 10MG TABLET PO SCH (08:45)
[2017-02-06] MEDS: DEXT 5%/0.45% NACL 1000ML 1,000 ML IV SCH (08:52)
[2017-02-06] MEDS: DOCUSATE SODIUM SUGAR FREE 100MG/10ML UDC NG SCH ×2 (09:00→17:33)
[2017-02-06] MEDS: PANTOPRAZOLE SODIUM 40 MG/VIAL IV SCH (09:00)
[2017-02-06] MEDS: FLUCONAZOLE 100 MG/50ML BAG 50 ML IV SCH (09:40)
[2017-02-06] MEDS ORDERED: HYDROCODONE/ACETAMINOPHEN 10/325MG TABLET PO PRN (13:00)
[2017-02-06 13:38] LABS: PLATELET ESTIMATE DECREASED
[2017-02-06] MEDS: METHYLPREDNISOLONE SOD SUCC 40 MG/ML VIAL IV SCH ×2 (14:08→21:55)
[2017-02-07] VITALS (8 sets, daily range): BP systolic 101–134; BP diastolic 59–94
[2017-02-07] MEDS: PIPERACILLIN/TAZ 3.375G PREMIX 50 ML IV SCH ×4 (01:58→21:15)
[2017-02-07] MEDS: METHYLPREDNISOLONE SOD SUCC 40 MG/ML VIAL IV SCH (05:33)
[2017-02-07] MEDS: CLONIDINE 0.1MG TABLET PO SCH ×3 (05:33→21:15)
[2017-02-07 06:41] LABS: HEMATOCRIT. 40.4 % (42.0-52.0); HEMOGLOBIN. 13.2 g/dL (14.0-18.0); MEAN CORPUSCULAR HEMOGLOBIN 29.5 pg (28.0-32.0); MEAN CORPUSCULAR VOLUME 90.4 fL (80.0-94.0); MEAN PLATELET VOLUME 10.2 fl (7.4-10.4); PLATELET 98 x1000/uL (130-400); RED BLOOD CELL COUNT 4.47 mill/uL (4.7-6.1); RED CELL DISTRIBUTION WIDTH 14.6 % (11.6-14.6)
[2017-02-07] MEDS: INSULIN LISPRO 100 UNITS/ML SUBCUT SCH ×4 (07:30→21:00)
[2017-02-07 07:32] LABS: CARBON DIOXIDE 37 mEq/L (21-32); CHLORIDE 91 mEq/L (98-107)
[2017-02-07] MEDS: BLOOD SUGAR DIAGNOSTIC STRIP TEST SCH ×4 (07:32→21:00)
[2017-02-07] MEDS: AMLODIPINE 10MG TABLET PO SCH (08:59)
[2017-02-07] MEDS: DOCUSATE SODIUM SUGAR FREE 100MG/10ML UDC NG SCH ×2 (09:00→16:09)
[2017-02-07] MEDS: FLUCONAZOLE 100 MG/50ML BAG 50 ML IV SCH (10:26)
[2017-02-07] MEDS ORDERED: LORAZEPAM 2MG/ML CPJ IV PRN ×2 (10:30→11:00)
[2017-02-07] MEDS: IPRATROPIUM/ALBUTEROL 0.5-3(2.5)MG/3ML NEB INH PRN ×4 (10:31→23:20)
[2017-02-07 10:35] LABS: BG BASE EXCESS 13.9 mmol/L (-2.0-2.0); BG CARBOXYHEMOGLOBIN 0.9 % (0.5-1.5); BG HCO3 ACT 39.8 mmol/L (22.0-26.0); BG METHEMOGLOBIN 0.4 % (0.0-1.5); BG OXYHEMOGLOBIN 95.7 % (94.0-97.0); BG PCO2 53.8 mmHg (35.0-45.0); BG PH 7.487 (7.350-7.450); BG PO2 85.8 mmHg (75.0-100.0); BG SAMPLE SITE RIGHT RADIAL; BG VENT MODE NASAL CANNULA
[2017-02-07] MEDS: DEXT 5%/0.45% NACL 1000ML 1,000 ML IV SCH (12:10)
[2017-02-07] MEDS ORDERED: THROAT LOZENGES-BENZOCAINE/MENTH/CETYLPYRD CL LOZENGES MM PRN (13:00)
[2017-02-07] MEDS ORDERED: THROAT LOZENGES-BENZOCAINE/MENTH/CETYLPYRD CL LOZENGES MM SCH (13:00)
[2017-02-07 17:10] LABS: PLATELET ESTIMATE DECREASED
[2017-02-07] MEDS ORDERED: METHYLPREDNISOLONE SOD SUCC 40 MG/ML VIAL IV SCH (18:00)
[2017-02-08] MEDS: INSULIN LISPRO 100 UNITS/ML SUBCUT SCH (07:30)
[2017-02-08] MEDS: BLOOD SUGAR DIAGNOSTIC STRIP TEST SCH (07:30)
[2017-02-08 08:00] VITALS: BP 123/78
[2017-02-08] MEDS: DOCUSATE SODIUM SUGAR FREE 100MG/10ML UDC NG SCH (08:59)
[2017-02-08] MEDS: AMLODIPINE 10MG TABLET PO SCH (09:00)
[2017-02-08 09:05] VITALS: BP 133/75
== END 2017-02-08 09:51 | disposition left against medical advice (07) | DRG 207 ==
LOC: ER 05:21 → MICUNO 05:52 → EDBEDREQ 05:55 → EDBEDREQTM 05:55 → CANRESERV 15:18 → ENRESERV 15:18 → MICUSO 01-29 12:00 → 5EST 02-06 20:45
PROVIDERS: ADMIT Hospitalist; ATTEND Hospitalist
PROC: 5A1955Z Respiratory Ventilation, Greater than 96 Consecutive Hours (ICD-10-PCS; principal; 2017-01-28)
PROC: 0BH17EZ Insertion of Endotracheal Airway into Trachea, Via Natural or Artificial Opening (ICD-10-PCS; 2017-01-28)
PROC: 4A00X4Z Measurement of Central Nervous Electrical Activity, External Approach (ICD-10-PCS; 2017-01-29)
PROC: 02HV33Z Insertion of Infusion Device into Superior Vena Cava, Percutaneous Approach (ICD-10-PCS; 2017-02-02)
PROC: B548ZZA Ultrasonography of Superior Vena Cava, Guidance (ICD-10-PCS; 2017-02-02)
DX: J96.01 Acute respiratory failure with hypoxia (principal); I50.33 Acute on chronic diastolic (congestive) heart failure; E87.2 Acidosis; D68.59 Other primary thrombophilia; D69.6 Thrombocytopenia, unspecified; I27.20 Pulmonary hypertension, unspecified; J44.1 Chronic obstructive pulmonary disease with (acute) exacerbation; I48.92 Unspecified atrial flutter; N39.0 Urinary tract infection, site not specified; I48.91 Unspecified atrial fibrillation; I11.0 Hypertensive heart disease with heart failure; E11.9 Type 2 diabetes mellitus without complications; D64.9 Anemia, unspecified; I16.0 Hypertensive urgency; I25.10 Atherosclerotic heart disease of native coronary artery without angina pectoris; Z53.21 Procedure and treatment not carried out due to patient leaving prior to being seen by health care provider; B19.20 Unspecified viral hepatitis C without hepatic coma; E78.5 Hyperlipidemia, unspecified; I08.0 Rheumatic disorders of both mitral and aortic valves; Z79.899 Other long term (current) drug therapy; Z86.79 Personal history of other diseases of the circulatory system; Z87.891 Personal history of nicotine dependence; I25.2 Old myocardial infarction
CPT/HCPCS: 31500; 36415; 36569; 36600; 51702; 70450; 71010; 71250; 76937; 80048; 80053; 80305; 81001; 82105; 82375; 82378; 82805; 82962; 83605; 83880; 84153; 84478; 84484; 85025; 85610; 86705; 86709; 86803; 87040; 87086; 87186; 87340; 92610; 93005; 93306; 93970; 94002; 94003; 94640; 96361; 96374; 96375; 96376; 97162; 99291; C1725; C9113; J0330; J0360; J1200; J1450; J1650; J1815; J1956; J2060; J2250; J2270; J2405; J2543; J2704; J2920; J2930; J3010; J3475; J3490; J7030; J7060; J7611; J7620; J7626; A4315

== ENCOUNTER 2017-12-21 00:30 | Emergency (ER) | payer MEDICARE, MEDICAID ==
[~2017-12-21] VITALS: Ht 177.8 cm; Wt 72.0 kg
[~2017-12-21 00:30] MED LIST changes: +FURO20TA4 PO; +METO-396 PO; +P20 PO
[2017-12-21] MEDS ORDERED: ONDANSETRON HCL 4MG/2ML INJ IV STA (00:59)
[2017-12-21] MEDS ORDERED: METHYLPREDNISOLONE SOD SUCC 125 MG/2 ML VIAL IV STA (00:59)
[2017-12-21] MEDS ORDERED: IPRATROPIUM BROMIDE (0.02%) 0.5MG/2.5ML NEB HHN STA (00:59)
[2017-12-21] MEDS ORDERED: MAGNESIUM 2 G PREMIX 50 ML IV ONE (01:00)
[2017-12-21] MEDS: ALBUTEROL (0.083%) 2.5MG/3ML NEB HHN SCH ×2 (01:15→01:56)
[2017-12-21] MEDS: MAGNESIUM 1 G PREMIX 100 ML IV SCH ×2 (01:24→03:08)
[2017-12-21] MEDS ORDERED: SODIUM CHLORIDE 0.9% 1,000 ML IV SCH (02:01)
[2017-12-21 02:06] LABS: BASOPHILS % 0.3 % (0.0-2.0); EOSINOPHILS % 1.1 % (0.0-5.0); HEMATOCRIT. 39.4 % (42.0-52.0); HEMOGLOBIN. 12.7 g/dL (14.0-18.0); LYMPHOCYTES % 10.4 % (20.0-50.0); MEAN CORPUSCULAR HEMOGLOBIN 29.2 pg (28.0-32.0); MEAN CORPUSCULAR VOLUME 90.7 fL (80.0-94.0); MEAN PLATELET VOLUME 8.9 fl (7.4-10.4); MONOCYTES % 8.7 % (2.0-8.0); NEUTROPHILS % 79.5 % (40.0-76.0); PLATELET 141 x1000/uL (130-400); RED BLOOD CELL COUNT 4.34 mill/uL (4.7-6.1); RED CELL DISTRIBUTION WIDTH 15.2 % (11.6-14.6)
[2017-12-21 02:10] LABS: CHLORIDE 95 mEq/L (98-107)
[2017-12-21] MEDS ORDERED: ACETAMINOPHEN 325MG TABLET PO STA (03:19)
[2017-12-21] MEDS ORDERED: CEFTRIAXONE 1 G PREMIX 50 ML IV ONE (03:30)
[2017-12-21] MEDS ORDERED: AZITHROMYCIN 500 MG in DEXT 5% WATER 250 ML IV ONE (03:30)
[2017-12-21] MEDS ORDERED: DIPHENHYDRAMINE 50MG/ML VIAL IV PRN (06:15)
[2017-12-21] MEDS ORDERED: GUAIFENESIN 200MG/10ML SUGAR FREE UDC PO PRN (06:15)
[2017-12-21] MEDS ORDERED: ACETAMINOPHEN 325MG TABLET PO PRN (06:15)
[2017-12-21] MEDS ORDERED: HYDROMORPHONE HCL/PF 2MG/ML CPJ IV PRN (06:15)
[2017-12-21] MEDS ORDERED: NA PHOS,M-B/NA PHOS,DI-BA ENEMA 118ML PR PRN (06:15)
[2017-12-21] MEDS ORDERED: LEVOFLOXACIN 500MG PREMIX 100 ML IV SCH (06:15)
[2017-12-21] MEDS ORDERED: DOCUSATE SODIUM 100MG CAPSULE PO PRN (06:15)
[2017-12-21] MEDS ORDERED: METHYLPREDNISOLONE SOD SUCC 125 MG/2 ML VIAL IV SCH (06:15)
[2017-12-21] MEDS ORDERED: MAGNESIUM/ALUMINUM HYDROXIDE/SIMETHICONE 30ML UDC PO PRN (06:15)
[2017-12-21] MEDS ORDERED: ONDANSETRON HCL 4MG/2ML INJ IV PRN (06:15)
[2017-12-21] MEDS ORDERED: CLONIDINE 0.1MG TABLET PO PRN (06:15)
[2017-12-21] MEDS ORDERED: HYDROCODONE/ACETAMINOPHEN 5/325MG TABLET PO PRN (06:15)
[2017-12-21] MEDS ORDERED: IPRATROPIUM/ALBUTEROL 0.5-3(2.5)MG/3ML NEB INH PRN (06:15)
[2017-12-21] MEDS ORDERED: LORAZEPAM 2MG/ML CPJ IV PRN (06:15)
[2017-12-21 07:30] VITALS: BP 137/88
[2017-12-21] MEDS ORDERED: ASPIRIN 81MG EC TABLET PO SCH (09:00)
== END 2017-12-21 07:42 | disposition left against medical advice (07) ==
LOC: ER 00:30 → EDBEDREQ 01:12 → EDBEDREQSVC 01:12 → EDBEDREQTM 01:12 → EDBEDREQ 02:07 → EDBEDREQTM 02:07 → CANRESERV 07:00 → ENRESERV 07:00 → ER 07:42 → CANBEDREQ 08:20
DX: J44.1 Chronic obstructive pulmonary disease with (acute) exacerbation (principal); J96.00 Acute respiratory failure, unspecified whether with hypoxia or hypercapnia; R65.10 Systemic inflammatory response syndrome (SIRS) of non-infectious origin without acute organ dysfunction; I11.0 Hypertensive heart disease with heart failure; I50.9 Heart failure, unspecified; I25.10 Atherosclerotic heart disease of native coronary artery without angina pectoris; E11.9 Type 2 diabetes mellitus without complications; E78.00 Pure hypercholesterolemia, unspecified; R94.31 Abnormal electrocardiogram [ECG] [EKG]; Z79.01 Long term (current) use of anticoagulants
CPT/HCPCS: 36415; 71045; 80053; 83605; 83880; 84484; 85025; 87040; 93005; 94640; 94660; 96365; 96366; 96367; 96375; 99291; J0456; J0696; J2405; J2930; J3475; J7030; J7611; J7060